=== PATIENT | male | born 1995 | race African-American/Black ===

== ENCOUNTER 2017-04-05 14:52 | Emergency (ER) | payer SELFPAY ==
[~2017-04-05] VITALS: Ht 185.4 cm; Wt 112.0 kg
[2017-04-05] MEDS ORDERED: SODIUM CHLORIDE 0.9% 1,000 ML IV ONE (15:10)
[2017-04-05] MEDS ORDERED: TETANUS, DIPHTHERIA, PERTUSSIS VAC/PF 0.5ML (>7YR OLD) IM ONE (15:15)
[2017-04-05 16:40] LABS: BASOPHILS % 0.5 % (0.0-2.0); EOSINOPHILS % 0.7 % (0.0-5.0); HEMATOCRIT. 41.2 % (42.0-52.0); HEMOGLOBIN. 14.2 g/dL (14.0-18.0); LYMPHOCYTES % 24.3 % (20.0-50.0); MEAN CORPUSCULAR HEMOGLOBIN 29.8 pg (28.0-32.0); MEAN CORPUSCULAR VOLUME 86.4 fL (80.0-94.0); MEAN PLATELET VOLUME 7.1 fl (7.4-10.4); MONOCYTES % 7.8 % (2.0-8.0); NEUTROPHILS % 66.7 % (40.0-76.0); PLATELET 203 x1000/uL (130-400); RED BLOOD CELL COUNT 4.77 mill/uL (4.7-6.1); RED CELL DISTRIBUTION WIDTH 13.1 % (11.6-14.6)
[2017-04-05 16:52] LABS: CARBON DIOXIDE 26 mEq/L (21-32); CHLORIDE 102 mEq/L (98-107)
[2017-04-05 16:56] LABS: TROPONIN I < 0.02 ng/mL (0.00-0.04)
[2017-04-05 18:31] VITALS: BP 130/63
== END 2017-04-05 19:30 | disposition home or self-care (01) ==
LOC: ER 19:06
DX: S09.90XA Unspecified injury of head, initial encounter (principal); S62.304A Unspecified fracture of fourth metacarpal bone, right hand, initial encounter for closed fracture; E86.0 Dehydration; F12.10 Cannabis abuse, uncomplicated; Y08.89XA Assault by other specified means, initial encounter; Y93.89 Activity, other specified; Y92.59 Other trade areas as the place of occurrence of the external cause
CPT/HCPCS: 29125; 36415; 70450; 73130; 80053; 83735; 84484; 85025; 90471; 93005; 96360; 96361; 99285; J7030